=== PATIENT | male | born 1950 | race Caucasian/White ===

== ENCOUNTER 2022-04-28 06:44 | Outpatient (CLI) | payer OTHER, SELFPAY | END 2022-04-28 06:45 | disposition home or self-care (01) | LOC: INJ CL 06:44 | PROVIDERS: PCP Family Medicine; Visit Provider Family Medicine | DX: M54.16 Radiculopathy, lumbar region (principal); M51.26 Other intervertebral disc displacement, lumbar region | CPT/HCPCS: 64483; J1100; Q9966 ==

== ENCOUNTER 2023-07-20 07:55 | Outpatient (CLI) | payer MEDICARE, BC, SELFPAY | END 2023-07-20 07:56 | disposition home or self-care (01) | LOC: INJ CL 07:55 | PROVIDERS: PCP Family Medicine; Visit Provider Family Medicine | DX: M54.16 Radiculopathy, lumbar region (principal); M51.36 Other intervertebral disc degeneration, lumbar region | CPT/HCPCS: 64483; J1100; Q9966 ==

== ENCOUNTER 2023-11-30 06:55 | Outpatient (CLI) | payer MEDICARE, BC, SELFPAY | END 2023-11-30 06:56 | disposition home or self-care (01) | LOC: INJ CL 06:56 | PROVIDERS: PCP Family Medicine; Visit Provider Family Medicine | DX: M54.16 Radiculopathy, lumbar region (principal); M51.36 Other intervertebral disc degeneration, lumbar region | CPT/HCPCS: 64483; J1100; Q9966 ==

== ENCOUNTER 2024-07-17 09:08 | Day surgery (SDC) | payer MEDICARE, BC, SELFPAY ==
[2024-07-17] VITALS (7 sets, daily range): BP systolic 135–162; BP diastolic 71–91; PULSE 60–65; RESP 15–18; TEMP 36.6; O2SAT 96–99; BMI 26.6
[2024-07-17] MEDS: ETHYL CHLORIDE 1 APPLICATION 1 APPLIC TOPICAL (09:30)
[2024-07-17] MEDS: BUPIVACAINE 0.5% 30 ML INJECTION (09:30)
[2024-07-17] MEDS: LIDOCAINE 1%-EPI 1:100,000 20 ML INFILTRATI (09:30)
--- NOTE | 2024-07-17 09:38 | SUR.PREOP ---
SAME DAY SURGERY LOCAL INJECTION SITE VERIFICATION WAS PERFORMED BY DR. JAY AND PATIENT PRIOR TO LOCAL ANESTHETIC BEING INJECTED TO OPERATIVE SITE.
[2024-07-17] MEDS: BACITRACIN OINTMENT BULK TUBE 1 APPLIC TOPICAL (11:32)
--- NOTE | 2024-07-18 08:03 | P.ORPRC_ITS ---
Procedure Note Date of procedure: 07/17/24 Procedure: PREOPERATIVE DIAGNOSIS: 1. Left carpal tunnel syndrome POSTOPERATIVE DIAGNOSIS: 1. Left carpal tunnel syndrome PROCEDURE: 1. Left open carpal tunnel release SURGEON: Lewis Kelly MD. [employer] [employer] DIRECTOR: Darlene BACH ANESTHESIA: Local anesthetic (50:50 mixture of 1% lidocaine with epi and 0.5% marcaine plain) - 10ml total IMPLANTS: None EBL: 2 mL TOURNIQUET: None COMPLICATIONS: None evident INDICATIONS: The patient is a pleasant 73-year-old male who has experienced left hand numbess/tingling affecting the radial 3.5 digits for multiple months. It has progressively gotten worse. Nonoperative management has been tried and failed, and therefore surgery was recommended. DESCRIPTION OF PROCEDURE: Following a thorough discussion of risks, benefits, and alternatives consent was obtained and the operative extremity was marked. The patient was brought to the operating room and placed supine on the operating table. Local anesthesia induction was undertaken in preop holding. No antibiot ics were administered as this was planned to be a local case only. Proper time- out was performed identifying proper patient, site, and procedure. The operative extremity was prepped and draped in the appropriate sterile fashion using ChloraPrep. An incision was made in line with the radial border of the ring finger beginning 1 cm distal to the distal wrist crease and progressing for another 2.5cm distal. Caution was taken to stay proximal to Medina's cardinal line. Sharp incision through the skin, subcutaneous tissue, and palmar fascia was performed. The thenar musculature was bluntly elevated off the transverse carpal ligament. The ligament was directly visualized, and divided sharply with a 15 blade. This was released from its most proximal to the most distal extent. Metzenbaum scissor was also utilized to release the fascia extension proximally. We confirmed complete release of the transverse carpal ligament. Closure was performed with 4-O nylon in interrupted fashion. Soft dressings were applied, and the patient was transferred to the recovery room in stable condition. PLAN: 1. Encourage elevation of the operative extremity. 2. Range of motion of the fingers and hand/wrist as tolerated. 3. Ibuprofen/acetaminophen and/or oxycodone as needed for pain control. 4. Follow up with PA visit or nurse visit in 12-16 days for wound check and suture removal.
== END 2024-07-17 11:51 | disposition home or self-care (01) ==
LOC: OR 09:09
PROVIDERS: PCP Family Medicine; Visit Provider Orthopaedic Surgery Sports Medicine
PROC: (CPT 64721; principal; 2024-07-17 11:30)
DX: G56.02 Carpal tunnel syndrome, left upper limb (principal)
CPT/HCPCS: 64721; J0665

== ENCOUNTER 2024-08-21 09:55 | Day surgery (SDC) | payer MEDICARE, BC, SELFPAY ==
[2024-08-21] VITALS (8 sets, daily range): BP systolic 138–157; BP diastolic 77–90; PULSE 59–68; RESP 12–18; TEMP 36.6; O2SAT 97–99; BMI 26.6
--- OUTSIDE RECORDS SUMMARY | 2024-08-21 09:59 | XMS_ITS | Clinical Summary ---
Author Organization [facility] Address [place], [place] [address] Care Team Providers Care Torpedo Worker Name Role Phone Vel Herr MD Primary Care Provider [phone] Allergies Active Allergy Reactions Criticality Noted Date Comments Mesalamine Other - Describe In Comment Field 08/21/2008 Flu-Like Sxs Penicillins Rash 07/20/2008 Medications Medication Sig Dispensed Refills Start Date End Date Status sildenafil citrate (Viagra) 100 mg tabletIndications: Erectile dysfunction, unspecified erectile dysfunction type .TAKE 1/2 TABLET (50MG) BY MOUTH 30 MINUTES TO 4 HOURS BEFORE SEXUAL ACTIVITY MAX. 100MG/24HRS 16 Tablet 3 05/30/20 24 Active diphenoxylate-atro pine, 2.5-0.025 mg, (LOMOTIL) 2.5-0.025 mg tabletIndications: Chronic diarrhea 1 tablet at bedtime as needed. 60 Tablet 5 05/30/20 24 Active atorvastatin (LIPITOR) 20 mg tabletIndications: Other hyperlipidemia Take 1 Tablet (20 mg) by mouth at bedtime. 90 Tablet 3 05/30/20 24 Active amLODIPine (NORVASC) 5 mg tabletIndications: Essential hypertension Take 1 Tablet (5 mg) by mouth once daily. 90 Tablet 3 05/30/20 24 Active atenoloL (TENORMIN) 50 mg tabletIndications: Essential hypertension Take 1 Tablet (50 mg) by mouth once daily. 90 Tablet 05/30/20 24 Active allopurinoL (ZYLOPRIM) 300 mg tabletIndications: History of gout Take 1 Tablet (300 mg) by mouth once daily. 90 Tablet 3 05/30/20 24 Active predniSONE (DELTASONE) 20 mg tabletIndications: History of gout,Gout, unspecified cause, unspecified chronicity, unspecified site TAKE 1/2 TAB ONCE DAILY WITH A MEAL. USE FOR UP TO TWO DAYS NEEDED FOR FOOT INFLAMMATION AND STOP 15 Tablet 2 05/30/20 24 Active cyanocobalamin (VITAMIN B12) 250 mcg tabletIndications: Vitamin B12 deficiency Take 3 Tablets (750 mcg) by mouth once daily. 270 Tablet 3 05/30/20 24 Active acetaminophen-code ine (TYLENOL #3) 300-30 mg per tabletIndications: Chronic diarrhea Take 1 tablet at bedtime as needed. 100 Tablet 07/26/20 24 Active acetaminophen-code ine (TYLENOL #3) 300-30 mg per tabletIndications: History of gout TAKE 1/2 TABLET BY MOUTH AT BEDTIME NEEDED.REPEAT 1/2 TABLET IN 3 HOURS. MAY TAKE AN ADDITIONAL 1/2 TABLET IN 3 HOURS IF NEEDED. 100 Tablet 04/12/20 24 024 Discontinued acetaminophen-code ine (TYLENOL #3) 300-30 mg per tabletIndications: History of gout PLEASE SEE ATTACHED FOR DETAILED DIRECTIONS 100 Tablet 07/24/20 24 024 Discontinued(Re order (E-cancel not sent)) Active Problems Problem Noted Date Diagnosed Date Sacroiliitis 12/16/2021 History of gout 09/26/2021 DDD (degenerative disc disease), lumbar 07/17/20 21 B12 deficiency 06/01/2019 Overview (07/16/2021): Patient reports that his large bowel was removed and this makes it hard to absorb Vitamin B12. Elevated prostate specific antigen (PSA) 013 Unspecified essential hypertension 11/23/2012 Overview (10/07/2022): Lisinopril caused a cough he thinks. ED (erectile dysfunction) 05/20/2011 Overview (12/06/2020): He needs written prescriptions to send to [facility]. Unspecified conductive hearing loss 08/05/2010 Overview (08/05/2010): Left ear, history of bilateral otosclerosis and stapedectomy resulting in normal hearing Ulcerative colitis, unspecified 08/21/2008 Overview (02/03/2023): S/P Colectomy S/P Sigmoidoscopy 05/2008: Dr Renee 05/20/2011 Patient reports no Codeine since 11/17/2012. Insurance no longer covers Lomotil so switched to Cholestyramine on 02/03/2023. Encounters Date Type Department Care Team Description 07/26/2024 Telephone [facility] [address] [place] [address] Vel Herr MD Refill Request (Tylenol #3) 07/24/2024 Refill [facility] [address] [place] [address] Lane Ospina NP Refill Request (Acetaminophen-code ine) 05/30/2024 4:00 PM CDT Ancillary Procedure [facility] [address] [place] [address] 05/30/2024 12:40 PM CDT Office Visit [facility] [address] [place] [address] Vel Herr MD Medicare ANNUAL (subsequent) Visit (73 year old) 05/30/2024 Travel 05/26/2024 Travel from Last 3 Months Immunizations Name Administration Dates Next Due COVID-19 vaccine (Moderna 100mcg/0.5mL) YULIET LARA 12/13/2020,11/15/2020 Hepatitis A (Adult) 11/27/2003 Influenza A (H1N1), Inactivated 07/31/2009 Influenza, High-dose Inactivated 09/23/2015 Influenza, High-dose Quadriv alent Inactivated 07/21/2022,06/04/2020 Influenza, IIV3 (Age 6-35 mos) 06/12/2011 Influenza, IIV3 (Age >=3 years) 08/02/20 13,06/20/2012,06/12/2011,2009,07/23/2008 Influenza, Inactivated AIIV4 (Age 65+ Years) Preserv Free 06/09/2023,07/16/2021 Influenza, Inactivated IIV3 (Age 65+ Years) Preserv Free 06/04/2020,06/01/2019 Pneumococcal Poly,23-Valent (Pneumovax) 05/11/2018 Pneumococcal conj 13-Valent (Prevnar 13) 09/23/2015 Td (Age >=7 Years) 11/27/2003 Tdap 07/16/2021,06/12/2011 Zoster (Shingrix-RZV, recombinant) 08/10/2019, Zoster (Zostavax-ZVL, live) 05/20/2011 Family History Medical History Relation Name Comments Cancer Father Arv Lung Ca Other Mother Vera Gastric Ulcers in her 40's Anesthesia Problem No Family History Blood Disease No Family History Relation Name Status Comments Brother 1 Tariq Alive Brother 2 Dwain Alive Brother 3 Leobardo Alive Father Arv (Age 63) Mother Vera (Age 93) Sister Julisa Alive Social History Tobacco Use Types Packs/Day Years Used Date Smoking Tobacco: Former Cigarettes 1 5 0 09/20/1963 - 09/20/1968 Smokeless Tobacco: Never Tobacco Cessation:Counseling Given: Yes Alcohol Use Standard Drinks/Week Comments Yes 14 (1 standard drink = 0.6 oz pu re alcohol) Glass of wine each evening PHQ-2 Answer Date Recorded PHQ-2 TOTAL SCORE 0 05/30/2024 Social Connections Answer Date Recorded Do you often feel lonely or isolated from those around you? 0 05/26/2024 Alcohol Use Answer Date Recorded How often do you have a drink containing alcohol ? 4 09/29/2023 How many drinks containing a lcohol do you have on a typical day when you are drinking? 0 09/29/2023 How often do you have five or more drinks on one occasion? 0 09/29/2023 Financial Resource Strain Answer Date R ecorded Difficulty of Paying Living Expenses 3 05/26/2024 Difficulty of Paying Living Expenses Not on file 05/26/2024 Food Insecurity Answer Date Recorded Do you worry your food will run out before you are able to buy more? 1 05/26/2024 Transportation Needs Answer Date Record ed Does lack of transportation keep you from medica l appointments? 1 05/26/2024 Does lack of transportation keep you from work, meetings or getting things that you need? 1 05/26/2024 Housing Stability Answer Date Recorded What is your housing situation today? 1 05/26/2024 Sex and Gender Information Value Date Recorded Sex Assigned at Not on file Gender Identity Not on file Sexual Orientation Not on file Obstetrics History Last Filed Vital Signs Vital Sign Reading Time Taken Comments Blood Pressure 128/78 05/30/2024 1:06 PM CDT Pulse 67 05/30/2024 12:31 PM CDT Temperature 36.7 C (98 F) 09/29/2023 9:20 AM [facility] Respiratory Rate - - Oxygen Saturation 96% 05/30/2024 12:31 PM CDT Inhaled Oxygen Concentration - - Weight 92 kg (202 lb 12.8 oz) 05/30/2024 12:31 P M CDT Height 187.2 cm (6' 1.7) 05/30/2024 12:31 PM CD T Body Mass Index 26.25 05/30/2024 12:31 PM CDT Plan of Treatment Health Maintenance Due Date Last Done Comments Influenza for age 65+ 05/21/2024 06/09/2023 , 07/21/2022, 07/16/2021, Additional history exists BMI (ht and wt on same day) for age 18+ 05/30/2025 05/30/2024, 06/09/2023, 01/11/2023, Additional history exists Depression screening for age 12+ 05/30/2025 05/30/2024, 01/11/2023, 01/11/2023, Additional history exists Medicare Wellness for age 65+ 05/31/2025, 01/11/2023, 06/01/2019, Additional history exists Lipids for age 45-75 05/30/2029 05/30/2024, 06/07/2023, 01/05/2023, Additional history exists Tetanus booster 07/16/2031 07/16/2021, 05/22, 11/27/2003 Pneumococcal series for age 65+ Completed 8, 09/23/2015 Zoster (shingles) series for age 50+ Completed 08/10/2019, 05/25/2019, 05/20/2011 Tdap Completed 07/16/2021, 06/12/2011 Hepatitis C screening for ag e 18-79 Completed 12/15/2021 AAA screening age 65-74 Completed 12/23/2021 COVID-19 vaccine series Completed 06/26/20 24, 08/02/2023, 07/21/2022, Additional history exists Procedures Procedure Name Priority Date/Time Associated Diagnosis Comments XR KNEE WB 1 VIEW AP BILATERAL AND 2 VIEWS RIGHT Routine 05/30/2024 4:04 PM CDT Chronic pain of right knee CBC WITH AUTO DIFFERENTIAL Routine 05/30/2024 1:33 PM CDT Gout, unspecified cause, unspecified chronicity, unspecified site URIC ACID Routine 05/30/2024 1:33 PM CDT Gout, unspecified cause, unspecified chronicity, unspecified site CBC WITH AUTO DIFFERENTIAL Routine 05/30/2024 1:33 PM CDT Gout, unspecified cause, unspecified chronicity, unspecified site BASIC METABOLIC PANEL Routine 05/30/2024 1:33 PM CDT Gout, unspecified cause, unspecified chronicity, unspecified site LIPID PANEL W REFLEX MEASURED LDL Routine 05/30/2024 1:33 PM CDT Other hyperlipidemia US ABD AORTA SCREENING Routine 12/23/2021 10:45 AM CDT Screening for AAA (aortic abdominal aneurysm) ANTI HCV Routine 12/15/2021 10:22 AM CDT Need for hepatitis C screening test from Last 3 Months or Most Recently Relevant to Health Maintenance Results * XR KNEE WB 1 VIEW AP BILATERAL AND 2 VIEWS RIGHT (05/30/2024 4:04 PM CDT) Anatomical Region Laterality Modality KNEES, KNEE R Computed Radiogr aphy 05/31/2024 1:49 PM CDT Impressions 05/31/2024 1:49 PM CDT 1. No acute osseous injuries or abnormalities are noted. Dictated by: Carson Coker MD @ 05/31/2024 13:49:13 (Electronically Signed) Narrative 05/31/2024 1:49 PM CDT For Patients: As a result of the Cures Act, medical imaging exams and procedure reports are released immediately into your electronic medical record. You may view this report before your referring provider. If you have questions, please contact your health care provider. INDICATION: Chronic pain of right knee TECHNIQUE: Knee radiograph 3 views right COMPARISON: None FINDINGS: Bone: No acute fractures or aggressive bone lesions are identified. Joint: Mild chondrocalcinosis and osteoarthritis noted in the medial and patellofemoral compartments. No significant knee effusion is seen. Soft tissue: Unremarkable. No radiopaque foreign bodies are seen. Procedure Note Carson Coker MD - 05/31/2024 For Patients: As a result of the Cures Act, medical imagingexams and procedure reports are released immediately into your electronicmedical record. You may view this report before your referring provider.If you have questions, please contact your health care provider. INDICATION: Chronic pain of right knee TECHNIQUE: Knee radiograph 3 views right COMPARISON: None FINDINGS: Bone: No acute fractures or aggressive bone lesions are identified. Joint: Mild chondrocalcinosis and osteoarthritis noted in the medial andpatellofemoral compartments. No significant knee effusion is seen. Soft tissue: Unremarkable. No radiopaque foreign bodies are seen. IMPRESSION: 1. No acute osseous injuries or abnormalities are noted. Dictated by: Carson Coker MD @ 05/31/2024 13:49:13 (Electronically Signed) Vel Herr MD GENERAL IMAGING * (ABNORMAL) CBC WITH AUTO DIFFERENTIAL (05/30/2024 1:33 PM CDT) Pathologist [facility] WHITE BLOOD COUNT 7.9 4.5 - 11.0 thou/cu mm 05/30/2024 1:38 PM CDT [facility] RED BLOOD COUNT 4.09(L) 4.30 - 5.90 mil/cu mm 05/30/2024 1:38 PM CDT [facility] HEMOGLOBIN 13.0(L) 13.5 - 17.5 g/dL 05/30/2024 1:38 PM CDT [facility] HEMATOCRIT 39.9 37.0 - 53.0 % 05/30/2024 1:38 PM CDT [facility] MCV 98 80 - 100 fL 05/30/2024 1:38 PM CDT [facility] MCH 31.8 26.0 - 34.0 pg 05/30/2024 1:38 PM CDT [facility] MCHC 32.6 32.0 - 36.0 g/dL 05/30/2024 1:38 PM CDT [facility] RDW 13.1 11.5 - 15.5 % 05/30/2024 1:38 PM CDT [facility] PLATELET COUNT 144 140 - 440 thou/cu mm 05/30/2024 1:38 PM CDT [facility] MPV 10.9 6.5 - 11.0 fL 05/30/2024 1:38 PM CDT [facility] % NEUT 67.4 % 05/30/2024 1:38 PM CDT [facility] % LYMPH 21.2 % 05/30/2024 1:38 PM CDT [facility] % MONO 9.1 % 05/30/2024 1:38 PM CDT [facility] % EOS 2.0 % 05/30/2024 1:38 PM CDT [facility] % BASO 0.3 % 05/30/2024 1:38 PM CDT [facility] ABSOLUTE NEUTROPHILS 5.3 1.7 - 7.0 thou/cu mm 05/30/2024 1:38 PM CDT [facility] ABSOLUTE LYMPHOCYTES 1.7 0.9 - 2.9 thou/cu mm 05/30/2024 1:38 PM CDT [facility] ABSOLUTE MONOCYTES 0.7 <0.9 thou/cu mm 05/30/2024 1:38 PM CDT [facility] ABSOLUTE EOSINOPHILS 0.2 <0.5 thou/cu mm 05/30/2024 1:38 PM CDT [facility] ABSOLUTE BASOPHILS 0.0 <0.3 thou/cu mm 05/30/2024 1:38 PM CDT [facility] Blood BLOOD SPECIMEN / Unknown Venipuncture / Unknown 05/30/2024 1:33 PM CDT 05/30/2024 1:34 PM CDT Vel Herr MD HEMATOLOGY [facility] [address] [place] [address], * LIPID PANEL W REFLEX MEASURED LDL (05/30/2024 1:33 PM CDT) CHOLESTEROL,TOTAL 143 100 - 199 mg/dL 05/31/2024 4:05 AM CDT [facility] Comment: Cholesterol, Total Reference Ranges Desirable <200 mg/dL Borderline 200-239 mg/dL High >=240 mg/dL TRIGLYCERIDES 99 <150 mg/dL 05/31/2024 4:05 AM CDT [facility] HDL CHOLESTEROL 69 >40 mg/dL 4:05 AM CDT [facility] NON-HDL CHOLESTEROL 74 <145 mg/dl 05/31/2024 4:05 AM CDT [facility] CHOL/HDL RATIO 2.07 <4.50 05/31/2024 4:05 AM CDT [facility] LDL CHOLESTEROL 54 <=130 mg/dL 05/31/2024 4:05 AM CDT [facility] VLDL CHOLESTEROL 20 <=30 mg/dL 05/31/2024 4:05 AM CDT [facility] PROVIDER ORDERED STATUS RANDOM 05/31/2024 4:05 AM T [facility] Blood BLOOD SPECIMEN / Unknown Venipuncture / Unknown 05/30/2024 1:33 PM CDT 05/30/2024 1:34 PM CDT Vel Herr MD [facility] [address] [place] [address], * URIC ACID (05/30/2024 1:33 PM CDT) URIC ACID 3.6 3.4 - 7.0 mg/dL 05/31/2024 3:41 AM CDT [facility] Blood BLOOD SPECIMEN / Unknown Venipuncture / Unknown 05/30/2024 1:33 PM CDT 05/30/2024 1:34 PM CDT Vel Herr MD CHEMISTRY [facility] [address] [place] [id number], * (ABNORMAL) BASIC METABOLIC PANEL (05/30/2024 1:33 PM CDT) SODIUM 140 136 - 145 mmol/L 05/31/2024 3:41 AM T [facility] POTASSIUM 4.2 3.5 - 5.1 mmol/L 05/31/2024 3:41 AM [facility] CHLORIDE 106 98 - 107 mmol/L 05/31/2024 3:41 AM [facility] CO2,TOTAL 24 22 - 29 mmol/L 05/31/2024 3:41 AM [facility] ANION GAP 10 5 - 18 05/31/2024 3:41 AM T [facility] GLUCOSE 95 70 - 99 mg/dL 05/31/2024 3:41 AM [facility] CALCIUM 10.5(H) 8.8 - 10.2 mg/dL 05/31/2024 3:41 AM [facility] BUN 19 8 - 23 mg/dL 05/31/2024 3:41 AM [facility] CREATININE 1.17 0.70 - 1.20 mg/dL 05/31/2024 3:41 AM [facility] BUN/CREAT RATIO 16 10 - 20 3:41 AM T [facility] eGFR 65(L) >90 mL/min/1.7 3m2 05/31/2024 3:41 AM T [facility] Comment:As of 2021, eG FR is calculated by the CKD-EPI creatinine equation without race adjustment. eGFR can be influenced by muscle mass, exercise, and diet. The reported eGFR is an estimation only and is only applicable if the renal function is stable. Blood BLOOD SPECIMEN / Unknown Venipuncture / Unknown 05/30/2024 1:33 PM CDT 05/30/2024 1:34 PM CDT Vel Herr MD CHEMISTRY [facility] [address] [place] [address], [place] * US ABD AORTA SCREENING [[id number]] (12/23/2021 10:45 AM CDT) Anatomical Region Laterality Modality Abdomen, AORTA Ultrasound 12/24/2021 10:1 6 AM CDT Impressions 12/24/2021 10:16 AM CDT No evidence of abdominal aortic aneurysm. Dictated by Yann Lopez MD @ Dec 24 2021 10:16AM (Electronically Signed) Narrative 12/24/2021 10:16 AM CDT For Patients: As a result of the Cures Act, medical imaging exams and procedure reports are released immediately into your electronic medical record. You may view this report before your referring provider. If you have questions, please contact your health care provider. INDICATION: Screening for AAA (abdominal aortic aneurysm) COMPARISON: none TECHNIQUE: Andrews scale and color Doppler images were acquired of the abdominal aorta and iliac arteries. FINDINGS: Sonographic imaging demonstrates atherosclerotic changes. Proximally, the aorta measures 2.8 x 2.8 cm in diameter, mid 2.3 x 1.9 cm, and distally tapers to a measurement of 2.2 x 2.0 cm. The common iliac arteries are patent and measure 1.4 x 1.2 cm on the right and 1.3 x 1.3 cm in diameter on the left. There are no suspicious periaortic masses. Procedure Note Yann Lopez MD - 12/24/2021 For Patients: As a result of the Cures Act, medical imagingexams and procedure reports are released immediately into your electronicmedical record. You may view this report before your referring provider.If you have questions, please contact your health care provider. INDICATION: Screening for AAA (abdominal aortic aneurysm) COMPARISON: none TECHNIQUE: Andrews scale and color Doppler images were acquired of the abdominal aortaand iliac arteries. FINDINGS: Sonographic imaging demonstrates atherosclerotic changes. Proximally, theaorta measures 2.8 x 2.8 cm in diameter, mid 2.3 x 1.9 cm, and distallytapers to a measurement of 2.2 x 2.0 cm. The common iliac arteries arepatent and measure 1.4 x 1.2 cm on the right and 1.3 x 1.3 cm in diameteron the left. There are no suspicious periaortic masses. IMPRESSION: No evidence of abdominal aortic aneurysm. Dictated by Yann Lopez MD @ Dec 24 2021 10:16AM (Electronically Signed) Vel Herr MD [place] * ANTI HCV (12/15/2021 10:22 AM CDT) HEPATITIS C ANTIBODY Non-React aneesh Non-React aneesh 12/15/2021 5:44 PM CDT [facility] Comment:Antibodies to HCV no t detected; does not exclude the possibility of exposure to HCV. Blood BLOOD SPECIMEN / Unknown Venipuncture / Unknown 12/15/2021 10:22 AM CDT 12/15/2021 10:22 AM CDT Vel Herr MD SEND OUTS [facility] [address] [place] [address], [place] from Last 3 Months or Most Recently Relevant to Health Maintenance Care Teams Torpedo Worker Relationship Specialty Start Date End Date Vel Herr MD [address] [facility] [id number] PCP - General Family Practice 12/06/20
--- OUTSIDE RECORDS SUMMARY | 2024-08-21 09:59 | XMS_ITS | Clinical Summary ---
Author Organization [facility] Address [address] [place] [address]. [place] [address] Care Team Providers Care Embroidery Machine Operator Name Role Phone Yann Plasencia MD Primary Care Provider Vilma Lynch MD Unavailable [phone] Allergies Active Allergy Reactions Criticality Noted Date Comments Penicillins 08/19/2011 Medications atenolol (TENORMIN) 25 MG tablet Take 25 mg by mouth daily Active acetaminophen-c odeine (TYLENOL #3) 300-30 MG per tabletIndicatio ns:Rectal leakage,Rectal pain Take 1 tablet by mouth nightly as needed for moderate pain 30 tablet 3 4 Active diphenoxylate-a tropine (LOMOTIL) 2.5-0.025 MG per tabletIndicatio ns:S/P colectomy Take 1 tablet by mouth 4 times daily as needed 120 tablet 3 6 Active Sildenafil Citrate (VIAGRA PO) Take 50 mg by mouth Active atenolol-chlort halidone (TENORETIC) 50-25 MG tablet Take 1 tablet by mouth daily 1 Active vitamin B-12 (CYANOCOBALAMIN ) 250 MCG tablet TAKE 3 TABLETS BY MOUTH ONCE DAILY. 2 Active predniSONE (DELTASONE) 20 MG tablet TAKE 1/2 TAB ONCE DAILY WITH A MEAL. USE FOR UP TO TWO DAYS NEEDED FOR FOOT INFLAMMATION AND STOP 2 Active allopurinol (ZYLOPRIM) 300 MG tablet Take 1 tablet by mouth daily 4 Active amLODIPine (NORVASC) 5 MG tablet Take 1 tablet by mouth daily 4 Active Family History Medical History Relation Comments Anesthesia Reaction No family hx of Colon Cancer No family hx of Colon Polyps No family hx of Crohn's Disease No family hx of Ulcerative Colitis No family hx of Social History Tobacco Use Types Packs/Day Years Used Date Smoking Tobacco: Former Cigarettes Q uit: 10/19/1999 Smokeless Tobacco: Never Alcohol Use Standard Drinks/Week Comments Yes 0.8 (1 standard drink = 0.6 oz p ure alcohol) PHQ-2 Answer Date Recorded PHQ-2 Score 0 01/19/2024 Adolescent Education Answer Date Record ed Getting School Help Needed Not on file 06/27 Sex and Gender Information Value Date Recorded Sex Assigned at Not on file 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 Gender Identity Not on file Sexual Orientation Not on file 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 on file Last Filed Vital Signs Vital Sign Reading Time Taken Comments Blood Pressure 154/91 01/19/2024 9:57 AM CDT Pulse 65 01/19/2024 9:57 AM CDT Temperature 36.7 C (98.1 F) 06/25/2020 8:34 AM CDT Respiratory Rate - - Oxygen Saturation 99% 01/19/2024 9:57 AM CDT Inhaled Oxygen Concentration - - Weight 88.5 kg (195 lb) 01/19/2024 9:57 AM CDT Height 188 cm (6' 2) 01/19/2024 9:57 AM CDT Body Mass Index 25.04 01/19/2024 9:57 AM CDT Plan of Treatment Health Maintenance Due Date Last Done Comments ADVANCE CARE PLANNING 1949 ANNUAL REVIEW OF HM ORDERS 1949 CT COLONOGRAPHY 1949 FIT 1949 GLUCOSE 1949 sDNA (Cologuard) 1949 COLONOSCOPY 1959 HEPATITIS C SCREENING 1967 LIPID 1989 COLORECTAL CANCER SCREENING 08/29/2018 FLEX SIG 08/29/2018 08/29/2013, 08/19/2011 FALL RISK ASSESSMENT 03/15/2019 03/15/2018 MEDICARE ANNUAL WELLNESS VISIT 01/12/2024 01/11/2023, 07/16/2021 COVID-19 Vaccine ( season) 2024 12/01/2023, 08/02/2023, 07/21/2022, Additional history exists INFLUENZA VACCINE (#1) 2024 , 07/21/2022, 07/16/2021, Additional history exists RSV VACCINE (1 - 1-dose 75+ series) 2024 DTAP/TDAP/TD IMMUNIZATION (3 - Td or Tdap) 07/16/2031 07/16/2021, 06/12/2011, 11/27/2003 Pneumococcal Vaccine: 65+ Years Completed 05/11/2018, 09/23/2015 ZOSTER IMMUNIZATION Completed 08/10/2019, 05/25/2019, 05/15/2019, Additional history exists AORTIC ANEURYSM SCREENING (SYSTEM ASSIGNED) Completed 12/23/2021 PHQ-2 (once per calendar year) Completed 01/19/2024, 01/27/2022, 06/25/2020 HPV IMMUNIZATION Aged Out No longer e ligible based on patient's age to complete this topic MENINGITIS IMMUNIZATION Aged Out No l onger eligible based on patient's age to complete this topic RSV MONOCLONAL ANTIBODY Aged Out No l onger eligible based on patient's age to complete this topic Procedures Procedure Name Priority Date/Time Associated Diagnosis Comments HC FLEX SIGMOIDOSCOPY W/WO LUCHO SPEC BY BRUSH/WASH Routine 08/29/2013 11:20 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
--- OUTSIDE RECORDS SUMMARY | 2024-08-21 09:59 | XMS_ITS | Encounter Summary ---
Author Organization [facility] Address [address] [place] [address] Care Team Providers Care Clock Smith Name Role Phone Yann Plasencia MD Primary Care Provider Unavaila ble Harjinder Barton MD Unavailable [phone] Harjinder Barton MD Unavailable [phone] Vilma Wagoner MD Unavailable [phone] Encounter Details Date Type Department Care Team (Late st Contact Info) Description 05/31/2018 [facility] [address] [id number] Trinidad Villalta RN Social History Tobacco Use Types Packs/Day Years Used Date Smoking Tobacco: Former Cigarettes Q uit: 10/19/1999 Smokeless Tobacco: Never Alcohol Use Standard Drinks/Week Comments Yes 0.8 (1 standard drink = 0.6 oz p ure alcohol) Sex and Gender Information Value Date Recorded Sex Assigned at Not on file 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 Gender Identity Not on file Sexual Orientation Not on file 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 on file documented as of this encounter Plan of Treatment Not on file documented as of this encounter Visit Diagnoses Not on filedocumented in this encounter Care Teams Clock Smith Relationship Specialty Start Date End Date Yann Plasencia MD PCP - General Family Practice 08/08/15 Harjinder Barton MD [address] [place] [address] [address] [place] [address] Assigned Surgical Provider 12/04/20 12/27/21 Harjinder Barton MD [address] [facility] [address] [place], [place] [address] Assigned Surgical Provider 02/01/22 07/30/23 Vilma Wagoner MD [address] [facility] [address] [place], [place] [address] Assigned Surgical Provider 02/10/24 documented as of this encounter
--- OUTSIDE RECORDS SUMMARY | 2024-08-21 09:59 | XMS_ITS | Referral Summary ---
Author Organization [facility] Address [address] [place] [address]. 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 Gender Identity Not on file Sexual Orientation [...] 01/19/2024 9:57 AM CDT Plan of Treatment Not on file Procedures Procedure Name Priority Date/Time Associated Diagnosis Comments HC FLEX SIGMOIDOSCOPY W/WO LUCHO SPEC BY BRUSH/WASH Routine 08/29/2013 11:20 AM 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
--- OUTSIDE RECORDS SUMMARY | 2024-08-21 09:59 | XMS_ITS | Encounter Summary ---
Author Organization [facility] Address [address] [place] [address]. [place] [address] Care Team Providers Care Rater Associate Name Role Phone Daron Mathews Primary Care Provider Yann France MD Primary Care Provider Harjinder Bill MD Unavailable [phone] Harjinder Barton MD Unavailable [phone] Vilma Wagoner MD Unavailable [phone] Encounter Details Date Type Department Care Team (Late st Contact Info) Description 11/25/2012 Team Conference [facility] 1st Floor, Clinic [address] [place] [phone] Catalina Franklin, RN Social History Tobacco Use Types Packs/Day Years Used Date Smoking Tobacco: Former Cigarettes Q uit: 10/19/1999 Alcohol Use Standard Drinks/Week Comments Yes 0.8 (1 standard drink = 0.6 oz p ure alcohol) Sex and Gender Information Value Date Recorded Sex Assigned at Not on file 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 Gender Identity Not on file Sexual Orientation Not on file 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 on file documented as of this encounter Miscellaneous Notes * Telephone Encounter - Catalina Franklin RN - 11/25/2012 1:53 PM CST Two Scripts mailed to patient's home address for the following: Codeine 30 mg tabs #60 Sig: Take two tabs PO QHS No Refills MANAGER documented in this encounter Plan of Treatment Not on file documented as of this encounter Visit Diagnoses Not on filedocumented in this encounter Care Teams Rater Associate Relationship Specialty Start Date End Date Daron Mathews PCP - General 09/06/12 08/07/15 Yann Plasencia MD PCP - General Family Practice 08/08/15 Harjinder Barton MD [address] [place] [address] Assigned Surgical Provider 12/04/20 12/27/21 Harjinder Barton MD [address] [place] [id number] Assigned Surgical Provider 02/01/22 07/30/23 Vilma Wagoner MD [address] [facility] [address] [place] [address] Assigned Surgical Provider 02/10/24 documented as of this encounter
--- OUTSIDE RECORDS SUMMARY | 2024-08-21 09:59 | XMS_ITS | Encounter Summary ---
Author Organization [facility] Address [address] [place] [address]. [place] [address] Care Team Providers Care Therapeutic Dietitian Name Role Phone Yann Plasencia MD Primary Care Provider Harjinder Bill MD Unavailable [phone] RizwanaVilma MD Unavailable [phone] Encounter Details Date Type Department Care Team (Late st Contact Info) Description 01/06/2022 [facility] [facility] [address] [place] [address] Sadie Poe RN Social History Tobacco Use Types Packs/Day Years Used Date Smoking Tobacco: Former Cigarettes Q uit: 10/19/1999 Smokeless Tobacco: Never Alcohol Use Standard Drinks/Week Comments Yes 0.8 (1 standard drink = 0.6 oz p ure alcohol) PHQ-2 Answer Date Recorded PHQ-2 Score 0 06/25/2020 Sex and Gender Information Value Date Recorded Sex Assigned at Not on file 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 Gender Identity Not on file Sexual Orientation Not on file 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
--- NOTE | 2024-08-21 11:56 | PM.ORPRC ---
Procedure Note Date of procedure: 08/21/24 Procedure: PREOPERATIVE DIAGNOSIS: 1. Right carpal tunnel syndrome POSTOPERATIVE DIAGNOSIS: 1. Right carpal tunnel syndrome PROCEDURE: 1. Right open carpal tunnel release SURGEON: Lewis Kelly MD. HEALTH INFORMATICS ADVISOR: Bebeto Godwin PA-C ANESTHESIA: Local anesthetic (50:50 mixture of 1 % lidocaine with epi and 0.5% marcaine plain) - 10ml total IMPLANTS: None EBL: 2 mL TOURNIQUET: None COMPLICATIONS: None evident INDICATIONS: The patient is a pleasant 73-year-old male who has experienced right hand numbess/tingling affecting the radial 3.5 digits for multiple months. It has progressively gotten worse. Nonoperative management has been tried and failed, and therefore surgery was recommended. DESCRIPTION OF PROCEDURE: Following a thorough discussion of risks, benefits, and alternatives consent was obtained and the operative extremity was marked. The patient was brought to the operating room and placed supine on the operating table. Local anesthesia induction was undertaken in preop holding. No antibiotics were administered as this was planned to be a local case only. Proper time-out was performed identifying proper patient, site, and procedure. The operative extremity was prepped and draped in the appropriate sterile fashion using ChloraPrep. An incision was made in line with the radial border of the ring finger beginning 1 cm distal to the distal wrist crease and progressing for another 2.5cm distal. Caution was taken to stay proximal to Medina's cardinal line. Sharp incision through the skin, subcutaneous tissue, and palmar fascia was performed. The thenar musculature was bluntly elevated off the transverse carpal ligament. The ligament was directly visualized, and divided sharply with a 15 blade. This was released from its most proximal to the most distal extent. Metzenbaum scissor was also utilized to release the fascia extension proximally. We confirmed complete release of the transverse carpal ligament. Closure was performed with 4-O nylon in interrupted fashion. Soft dressings were applied, and the patient was transferred to the recovery room in stable condition. PLAN: 1. Encourage elevation of the operative extremity. 2. Range of motion of the fingers and hand/wrist as tolerated. 3. Ibuprofen/acetaminophen and/or oxycodone as needed for pain control. 4. Follow up with PA visit or nurse visit in 12-16 days for wound check and suture removal.
--- NOTE | 2024-08-21 12:20 | SUR.PHASEII ---
Pt to chair immediately upon return from OR. Patient denied pain, stated he did not need an ice pack as he has multiple at home, and verbalized readiness for discharge. Patient verbalized understanding of discharge instructions.
== END 2024-08-21 12:19 | disposition home or self-care (01) ==
PROVIDERS: PCP Family Medicine; Visit Provider Orthopaedic Surgery Sports Medicine
PROC: (CPT 64721; principal; 2024-08-21 11:45)
DX: G56.01 Carpal tunnel syndrome, right upper limb (principal)
CPT/HCPCS: 64721